=== PATIENT | male | born 1980 | race African-American/Black ===

== ENCOUNTER 2019-12-23 09:55 | Emergency (ER) | payer OTHER ==
[~2019-12-23] VITALS: Ht 180.3 cm; Wt 116.0 kg
[2019-12-23] MEDS ORDERED: IBUPROFEN 600MG TABLET PO STA (11:10)
[2019-12-23 12:02] LABS: BASOPHILS % 1.3 % (0.0-2.0); HEMATOCRIT. 37.7 % (42.0-52.0); LYMPHOCYTES % 15.3 % (20.0-50.0); MEAN CORPUSCULAR HEMOGLOBIN 33.5 pg (28.0-32.0); MEAN CORPUSCULAR VOLUME 90.5 fL (80.0-94.0); MEAN PLATELET VOLUME 8.1 fl (7.4-10.4); MONOCYTES % 4.4 % (2.0-8.0); PLATELET 166 x1000/uL (130-400); RED BLOOD CELL COUNT 4.17 mill/uL (4.7-6.1); RED CELL DISTRIBUTION WIDTH 14.1 % (11.6-14.6)
[2019-12-23 12:11] LABS: CHLORIDE 103 mEq/L (98-107)
[2019-12-23 12:40] LABS: CLARITY URINE CLEAR (CLEAR); COLOR URINE YELLOW (YELLOW); KETONES URINE NEGATIVE (NEGATIVE); LEUKOCYTE ESTERASE URINE NEGATIVE (NEGATIVE); NITRITE URINE NEGATIVE (NEGATIVE); OCCULT BLOOD URINE 1+ (NEGATIVE); PROTEIN URINE 2+ (NEGATIVE); SPECIFIC GRAVITY URINE 1.013 (1.005-1.030)
[2019-12-23] MEDS ORDERED: KETOROLAC 15MG/ML VIAL IV ONE (13:30)
[2019-12-23 15:38] VITALS: BP 136/102
== END 2019-12-23 15:39 | disposition home or self-care (01) ==
LOC: ER 10:04
DX: R07.89 Other chest pain (principal); F12.10 Cannabis abuse, uncomplicated; Z90.49 Acquired absence of other specified parts of digestive tract
CPT/HCPCS: 36415; 71045; 80053; 81003; 84484; 85025; 93005; 96374; 99285; J1885